=== PATIENT | female | born 1960 | race Caucasian/White ===

== ENCOUNTER 2021-05-02 14:43 | Emergency (ER) | payer OTHER, BC ==
[2021-05-02] MEDS ORDERED: Bacitracin Oint 1 GM U/D Packet TOP ONE (16:57)
[2021-05-02] MEDS ORDERED: Lidocaine 1% with EPINEPHrine 1:100,000 50 ML MDV INFILT ONE (17:00)
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
== END 2021-05-02 18:19 | disposition designated cancer center or children's hospital (05) ==
LOC: JP.ED 14:43
DX: S81.811A Laceration without foreign body, right lower leg, initial encounter (principal); Z88.2 Allergy status to sulfonamides; V19.9XXA Pedal cyclist (driver) (passenger) injured in unspecified traffic accident, initial encounter
CPT/HCPCS: 12002; 99282-25